=== PATIENT | female | born 1995 | race Caucasian/White ===

== ENCOUNTER 2021-08-18 16:36 | Inpatient (IN) ==
[2021-08-18] MEDS ORDERED: OXYTOCIN/RINGERS LACTATE 10 UNIT/166.6 ML BAG IVC ONE (17:01)
[2021-08-18] MEDS ORDERED: Ringers Solution, Lactated 1,000 ML IVC ONE (17:01)
[2021-08-18] MEDS ORDERED: CeFAZolin 2,000 MG/120 ML BAG IVPB ONE (17:01)
[2021-08-18] MEDS ORDERED: Metoclopramide 10 MG/2 ML VIAL IVP ONE (17:01)
[2021-08-18] MEDS ORDERED: Famotidine 20 MG/2 ML VIAL IVP ONE (17:01)
[2021-08-18] MEDS ORDERED: Ringers Solution, Lactated 1,000 ML IVC SCH (17:15)
[2021-08-18] MEDS ORDERED: Oxytocin 30 UNIT/503 ML BAG IVC SCH ×2 (17:15→23:09)
[2021-08-18 17:45] LABS: Amphetamine Screen,Urine Negative ng/mL (Cutoff=1000); Barbiturate Screen,Urine Negative ng/mL (Cutoff=200); Benzodiazepines Screen,Urine Negative ng/mL (Cutoff=200); Cannabinoid Screen,Urine Negative ng/mL (Cutoff = 50); Cocaine Screen,Urine Negative ng/mL (Cutoff= 300); Opiate Screen,Urine Negative ng/mL (Cutoff=300); Phencyclidine Screen,Urine Negative ng/mL (Cutoff=25)
[2021-08-18 18:20] LABS: Basophils % 0.2 %; Eosinophils % 0.1 %; Hematocrit 33.5 % (35.3-44.9); Hemoglobin 11.3 g/dL (11.5-15.4); Immature Granulocytes % 0.5 % (0-4); Lymphocytes # 2.4 K/mcL (0.6-4.6); Lymphocytes % 23.1 %; Mean Corpuscular HGB Conc 33.7 g/dL (31.6-35.5); Mean Corpuscular Hemoglobin 33.5 pg (28.0-33.3); Mean Corpuscular Volume 99.4 fL (83.0-100.0); Mean Platelet Volume 11.2 fL (9.4-12.4); Monocytes # 0.6 K/mcL (0.0-1.3); Monocytes % 5.3 %; Neutrophils # 7.4 K/mcL (1.6-8.9); Platelet Count 170 K/mcL (140-400); Red Blood Count 3.37 M/mcL (3.82-4.97); Segmented Neutrophils % 70.8 %; White Blood Count 10.5 K/mcL (4.3-11.1)
[2021-08-18 18:36] LABS: Influenza A PCR Negative (Negative); Influenza B PCR Negative (Negative); Resp. Syncytial Virus PCR Negative (Negative)
[2021-08-18 18:39] LABS: SARS-CoV-2 by PCR (In House) Positive (Negative)
[2021-08-18] MEDS ORDERED: Promethazine 6.25 MG in Water for inj. (sterile) 20 ML IVPB PRN (18:48)
[2021-08-18] MEDS ORDERED: Naloxone 0.4 MG/ML INJ IVP PRN (18:48)
[2021-08-18] MEDS ORDERED: *HR* HYDROmorphone PF 0.5 MG/0.5 ML SYRINGE IVP PRN (18:48)
[2021-08-18] MEDS ORDERED: *HR* Morphine Sulfate/PF 10 MG/10 ML AMPUL ONE (18:56)
[2021-08-18] MEDS ORDERED: *HR* FentaNYL (PF) 100 MCG/2 ML VIAL ONE (18:56)
[2021-08-18] MEDS ORDERED: Ondansetron 4 MG/2 ML VIAL ONE (18:56)
[2021-08-18] MEDS ORDERED: Ringers Solution, Lactated 1,000 ML ONE (19:59)
[2021-08-18] MEDS ORDERED: Acetaminophen IV 1,000 MG/100 ML BAG IVPB ONE (20:33)
[2021-08-18] MEDS ORDERED: Ketorolac 30 MG/ML VIAL ONE (20:55)
[2021-08-18] MEDS ORDERED: Measles/Mumps/Rubella Vacc 0.5 ML VIAL SQ ONE (23:09)
[2021-08-18] MEDS ORDERED: *HR* OxyCODONE Immed Rel 5 MG TABLET PO PRN (23:09)
[2021-08-18] MEDS ORDERED: Ondansetron 4 MG/2 ML VIAL IVP PRN (23:09)
[2021-08-18] MEDS ORDERED: Metoclopramide 10 MG/2 ML VIAL IVP PRN (23:09)
[2021-08-19] MEDS ORDERED: Ketorolac 30 MG/ML VIAL IVP SCH (02:55)
[2021-08-19] MEDS: Acetaminophen 325 MG TABLET PO SCH ×3 (05:00→23:00)
[2021-08-19 07:19] LABS: Basophils % 0.2 %; Eosinophils % 0.1 %; Hematocrit 33.3 % (35.3-44.9); Hemoglobin 10.7 g/dL (11.5-15.4); Immature Granulocytes % 0.4 % (0-4); Lymphocytes # 1.8 K/mcL (0.6-4.6); Mean Corpuscular HGB Conc 32.1 g/dL (31.6-35.5); Mean Corpuscular Hemoglobin 33.5 pg (28.0-33.3); Mean Corpuscular Volume 104.4 fL (83.0-100.0); Mean Platelet Volume 11.5 fL (9.4-12.4); Monocytes # 0.8 K/mcL (0.0-1.3); Monocytes % 5.6 %; Neutrophils # 10.9 K/mcL (1.6-8.9); Platelet Count 122 K/mcL (140-400); Red Blood Count 3.19 M/mcL (3.82-4.97); Red Cell Distribution Width 13.1 % (11.5-14.5); Segmented Neutrophils % 80.7 %; White Blood Count 13.5 K/mcL (4.3-11.1)
[2021-08-19] MEDS: Simethicone 80 MG TAB.CHEW PO SCH ×2 (08:34→23:00)
[2021-08-19] MEDS: Ibuprofen 600 MG TABLET PO SCH ×3 (08:34→23:00)
[2021-08-19] MEDS: Prenatal Vit/FA 1 EACH TABLET PO SCH (08:34)
[2021-08-19 13:01] LABS: HIV-1&2 Antibody & p24 Ag Nonreactive (Nonreactive)
[2021-08-19 14:30] LABS: Rubella IgG Antibody POSITIVE (POSITIVE); Varicella Zoster IgG Antibody Positive
[2021-08-19] MEDS ORDERED: Lanolin 7 G OINT...G. TP PRN (22:07)
[2021-08-20] MEDS: Ibuprofen 600 MG TABLET PO SCH ×2 (04:46→11:55)
[2021-08-20] MEDS: Acetaminophen 325 MG TABLET PO SCH ×2 (04:47→11:55)
[2021-08-20 07:22] VITALS: BP 105/64; PULSE 59; TEMP 98; O2SAT 97
[2021-08-20] MEDS: Prenatal Vit/FA 1 EACH TABLET PO SCH (08:31)
== END 2021-08-20 13:00 | disposition home or self-care (01) | DRG 786 ==
LOC: 1NENULAB 16:36 → 1NENUOBS 23:39
PROVIDERS: ADMIT Obstetrics & Gynecology; ATTEND Obstetrics & Gynecology